=== PATIENT | female | born 1980 | race Caucasian/White ===

== ENCOUNTER 2021-03-28 13:06 | Inpatient (IN) ==
[2021-03-28] MEDS ORDERED: Ondansetron 4 MG/2 ML VIAL IVP ONE (13:30)
[2021-03-28] MEDS ORDERED: 0.9 % Sodium Chloride 1,000 ML IVC SCH (13:30)
[2021-03-28 13:56] LABS: Bilirubin,Urine Negative (Negative); Blood,Urine Trace (Negative); Clarity,Urine Clear (Clear); Color,Urine Light-Yellow (Yellow); Glucose,Urine (UA) >=1000 mg/dL (Normal); Ketones,Urine >150 mg/dL (Negative); Leukocyte Esterase,Urine Negative (Negative); Mucus,Urine Few per lpf (None-Few); Nitrite,Urine Negative (Negative); PH,Urine 5.5 pH Units (5.0-8.0); Protein,Urine 100 mg/dL (Neg-Trace); RBC,Urine 0-3 per hpf (0-3); Specific Gravity,Urine 1.027 (1.010-1.025); Squamous Epithelial Cell,Urine Few per hpf (None-Few); Urobilinogen,Urine Normal (Normal); WBC,Urine 0-3 per hpf (0-3)
[2021-03-28 13:57] LABS: White Blood Count 23.5 K/mcL (4.3-11.1)
[2021-03-28 13:58] LABS: Basophils # 0.1 K/mcL (0.0-0.2); Basophils % 0.6 %; Hematocrit 53.5 % (35.3-44.9); Hemoglobin 16.5 g/dL (11.5-15.4); Immature Granulocytes % 2.2 % (0-4); Lymphocytes # 2.4 K/mcL (0.6-4.6); Lymphocytes % 10.1 %; Mean Corpuscular HGB Conc 30.8 g/dL (31.6-35.5); Mean Corpuscular Hemoglobin 27.5 pg (28.0-33.3); Mean Corpuscular Volume 89.3 fL (83.0-100.0); Mean Platelet Volume 10.3 fL (9.4-12.4); Monocytes # 1.1 K/mcL (0.0-1.3); Monocytes % 4.5 %; Neutrophils # 19.5 K/mcL (1.6-8.9); Platelet Count 471 K/mcL (140-400); Red Blood Count 5.99 M/mcL (3.82-4.97); Red Cell Distribution Width 13.5 % (11.5-14.5); Segmented Neutrophils % 82.6 %
[2021-03-28 14:12] LABS: Amphetamine Screen,Urine Negative ng/mL (Cutoff=1000); Barbiturate Screen,Urine Negative ng/mL (Cutoff=200); Benzodiazepines Screen,Urine Negative ng/mL (Cutoff=200); Cannabinoid Screen,Urine Negative ng/mL (Cutoff = 50); Cocaine Screen,Urine Negative ng/mL (Cutoff= 300); Opiate Screen,Urine Negative ng/mL (Cutoff=300); Phencyclidine Screen,Urine Negative ng/mL (Cutoff=25)
[2021-03-28 14:20] LABS: BUN/Creatinine Ratio 17 (6-26); Blood Urea Nitrogen 16 mg/dL (6-20); Calcium 9.3 mg/dL (8.6-10.3); Carbon Dioxide 5 mEq/L (23-29); Chloride 102 mEq/L (98-107); Glucose 234 mg/dL (70-105); Osmolality,Calculated 289 (280-300); Potassium 4.2 mEq/L (3.5-5.1); Sodium 135 mEq/L (136-145); eGFR For African Americans > 60 (> 60); eGFR For Non-African Americans > 60 (> 60)
[2021-03-28 14:28] LABS: Alanine Aminotransferase 47 Units/L (7-52); Albumin 4.9 g/dL (3.5-5.7); Albumin/Globulin Ratio 1.3 (1.1-2.2); Alkaline Phosphatase 105 Units/L (34-104); Aspartate Amino Transferase 21 Units/L (13-39); Bilirubin,Direct 0.1 mg/dL (0.0-0.2); Bilirubin,Indirect 0.5 mg/dL (0.0-1.0); Bilirubin,Total 0.6 mg/dL (0.3-1.0); Globulin 3.7 g/dL (2.4-3.5); Total Protein 8.6 g/dL (6.4-8.9)
[2021-03-28] MEDS ORDERED: Isovue-370 500 ML BOTTLE IVP ONE (14:39)
[2021-03-28 15:11] LABS: VBG HCO3 5 mEq/L (21-27); VBG PCO2 21 mmHg (41-51); VBG PH 6.94 pH Units (7.32-7.42); VBG PO2 106 mmHg (25-50)
[2021-03-28] MEDS ORDERED: Sodium Bicarbonate 75 MEQ in 0.45 % Sodium Chloride 1,000 ML IVC SCH (15:15)
[2021-03-28] MEDS ORDERED: Naloxone 0.4 MG/ML INJ IVP PRN (16:28)
[2021-03-28] MEDS ORDERED: Insulin Regular, Human 100 UNIT/ML IV PRN (16:30)
[2021-03-28] MEDS ORDERED: Metoclopramide 10 MG/2 ML VIAL IVP ONE (16:38)
[2021-03-28 17:06] LABS: Magnesium 1.9 mg/dL (1.6-2.6)
[2021-03-28 17:52] LABS: Estimated Average Glucose 246 mg/dl; Hemoglobin A1C 10.2 %
[2021-03-28] MEDS: D5% in 0.45% NACL w KCl 20 MEQ/1,000 ML MLS IVC SCH ×2 (18:43→22:55)
[2021-03-28 19:54] LABS: BUN/Creatinine Ratio 19 (6-26); Blood Urea Nitrogen 17 mg/dL (6-20); Calcium 8.3 mg/dL (8.6-10.3); Carbon Dioxide 4 mEq/L (23-29); Chloride 103 mEq/L (98-107); Glucose 268 mg/dL (70-105); Osmolality,Calculated 293 (280-300); Potassium 4.7 mEq/L (3.5-5.1); Sodium 136 mEq/L (136-145); eGFR For African Americans > 60 (> 60); eGFR For Non-African Americans > 60 (> 60)
[2021-03-28] MEDS ORDERED: 0.9 % Sodium Chloride 1,000 ML IV ONE (20:06)
[2021-03-28] MEDS ORDERED: 0.9 % Sodium Chloride 2,000 ML IVC ONE (20:08)
[2021-03-28] MEDS: 0.9 % Sodium Chloride 1,000 ML IVC SCH ×2 (21:30→22:50)
[2021-03-28] MEDS: D5% in 0.45% NACL 1,000 ML IVC SCH (21:48)
[2021-03-28] MEDS: *HR* Heparin 5,000 UNIT/ML VIAL SQ SCH (21:58)
[2021-03-29 01:07] LABS: VBG HCO3 5 mEq/L (21-27); VBG Ionized Calcium 0.85 mmol/L (1.15-1.35); VBG PCO2 19 mmHg (41-51); VBG PO2 207 mmHg (25-50)
[2021-03-29 01:20] LABS: BUN/Creatinine Ratio 14 (6-26); Blood Urea Nitrogen 11 mg/dL (6-20); Calcium 6.9 mg/dL (8.6-10.3); Carbon Dioxide < 4 mEq/L (23-29); Chloride 113 mEq/L (98-107); Glucose 184 mg/dL (70-105); Magnesium 1.5 mg/dL (1.6-2.6); Osmolality,Calculated 286 (280-300); Potassium 3.7 mEq/L (3.5-5.1); Sodium 136 mEq/L (136-145); eGFR For African Americans > 60 (> 60); eGFR For Non-African Americans > 60 (> 60)
[2021-03-29] MEDS: Calcium Gluconate 1gm/50mL 1 GM/50 ML BAG IVPB SCH ×4 (01:30→23:33)
[2021-03-29] MEDS ORDERED: Sodium Bicarbonate 150 MEQ in D5% in Water 1,000 ML IVC SCH (02:00)
[2021-03-29 02:03] LABS: Thyroid Stimulating Hormone 0.132 mcIU/mL (0.340-5.600); Triiodothyronine (T3) Free 2.55 pg/mL (2.50-3.90)
[2021-03-29] MEDS: Ondansetron 4 MG/2 ML VIAL IVP PRN ×2 (02:09→08:55)
[2021-03-29 03:18] LABS: Basophils % 0.2 %
[2021-03-29 03:19] LABS: Basophils # 0.1 K/mcL (0.0-0.2); Hematocrit 38.5 % (35.3-44.9); Hemoglobin 12.3 g/dL (11.5-15.4); Immature Granulocytes % 2.1 % (0-4); Lymphocytes # 2.5 K/mcL (0.6-4.6); Lymphocytes % 9.5 %; Mean Corpuscular HGB Conc 31.9 g/dL (31.6-35.5); Mean Corpuscular Hemoglobin 27.8 pg (28.0-33.3); Mean Corpuscular Volume 86.9 fL (83.0-100.0); Mean Platelet Volume 9.8 fL (9.4-12.4); Monocytes # 2.2 K/mcL (0.0-1.3); Monocytes % 8.3 %; Neutrophils # 20.9 K/mcL (1.6-8.9); Platelet Count 317 K/mcL (140-400); Red Blood Count 4.43 M/mcL (3.82-4.97); Red Cell Distribution Width 13.7 % (11.5-14.5); Segmented Neutrophils % 79.9 %; White Blood Count 26.1 K/mcL (4.3-11.1)
[2021-03-29] MEDS: D5% in 0.45% NACL w KCl 20 MEQ/1,000 ML MLS IVC SCH ×4 (03:32→16:47)
[2021-03-29 03:33] LABS: VBG HCO3 10 mEq/L (21-27); VBG Ionized Calcium 1.15 mmol/L (1.15-1.35); VBG PCO2 26 mmHg (41-51); VBG PH 7.19 pH Units (7.32-7.42); VBG PO2 37 mmHg (25-50)
[2021-03-29 03:43] LABS: BUN/Creatinine Ratio 14 (6-26); Blood Urea Nitrogen 10 mg/dL (6-20); Calcium 7.8 mg/dL (8.6-10.3); Carbon Dioxide 9 mEq/L (23-29); Chloride 115 mEq/L (98-107); Glucose 162 mg/dL (70-105); Osmolality,Calculated 293 (280-300); Phosphorous < 1.0 mg/dL (2.7-4.5); Potassium 2.9 mEq/L (3.5-5.1); Sodium 140 mEq/L (136-145); Troponin I < 0.03 ng/mL (< 0.04); eGFR For African Americans > 60 (> 60); eGFR For Non-African Americans > 60 (> 60)
[2021-03-29 03:46] LABS: Adenovirus Not Detected (Not Detect); Bordetella Pertussis Not Detected (Not Detect); Chlamydophila pneumoniae Not Detected (Not Detect); Coronavirus 229E Not Detected (Not Detect); Coronavirus HKU1 Not Detected (Not Detect); Coronavirus NL63 Not Detected (Not Detect); Coronavirus OC43 Not Detected (Not Detect); Human Metapneumovirus Not Detected (Not Detect); Human Rhinovirus/Enterovirus Not Detected (Not Detect); Influenza A Subtype 2009 H1 Not Detected (Not Detect); Influenza B Not Detected (Not Detect); Mycoplasma pneumoniae Not Detected (Not Detect); Parainfluenza Virus 1 Not Detected (Not Detect); Parainfluenza Virus 2 Not Detected (Not Detect); Parainfluenza Virus 3 Not Detected (Not Detect); Parainfluenza Virus 4 Not Detected (Not Detect); Respiratory Syncytial Virus Not Detected (Not Detect); SARS-CoV-2 Not Detected (Not Detect)
[2021-03-29] MEDS ORDERED: Potassium Chloride Elixir 20 MEQ/15 ML UDC PO ONE (03:46)
[2021-03-29 04:04] LABS: Thyroid Stimulating Hormone 0.209 mcIU/mL (0.340-5.600); Triiodothyronine (T3) Free 2.68 pg/mL (2.50-3.90); Triiodothyronine (T3) Total 0.84 ng/mL (0.87-1.78)
[2021-03-29] MEDS ORDERED: Ringers Solution, Lactated 1,000 ML ONE (05:48)
[2021-03-29] MEDS ORDERED: Ringers Solution, Lactated 1,000 ML IVC ONE (05:48)
[2021-03-29] MEDS: *HR* Heparin 5,000 UNIT/ML VIAL SQ SCH ×3 (06:04→22:17)
[2021-03-29 07:13] LABS: VBG HCO3 14 mEq/L (21-27); VBG PCO2 30 mmHg (41-51); VBG PH 7.29 pH Units (7.32-7.42); VBG PO2 134 mmHg (25-50)
[2021-03-29] MEDS ORDERED: Potassium Phosphate 44 MEQ in 0.9 % Sodium Chloride 250 ML IVPB ONE (07:46)
[2021-03-29 07:47] LABS: BUN/Creatinine Ratio 12 (6-26); Blood Urea Nitrogen 7 mg/dL (6-20); Calcium 7.4 mg/dL (8.6-10.3); Carbon Dioxide 13 mEq/L (23-29); Chloride 115 mEq/L (98-107); Glucose 159 mg/dL (70-105); Osmolality,Calculated 283 (280-300); Potassium 3.2 mEq/L (3.5-5.1); Sodium 136 mEq/L (136-145); eGFR For African Americans > 60 (> 60); eGFR For Non-African Americans > 60 (> 60)
[2021-03-29] MEDS: ARIPiprazole 5 MG TABLET PO SCH (09:32)
[2021-03-29] MEDS: BuPROPion XL (24 HR) 150 MG TABLET PO SCH (09:32)
[2021-03-29 11:21] LABS: VBG Ionized Calcium 1.16 mmol/L (1.15-1.35)
[2021-03-29 11:39] LABS: BUN/Creatinine Ratio 11 (6-26); Blood Urea Nitrogen 6 mg/dL (6-20); Calcium 7.7 mg/dL (8.6-10.3); Carbon Dioxide 16 mEq/L (23-29); Chloride 116 mEq/L (98-107); Glucose 81 mg/dL (70-105); Osmolality,Calculated 279 (280-300); Potassium 3.2 mEq/L (3.5-5.1); Sodium 136 mEq/L (136-145); eGFR For African Americans > 60 (> 60); eGFR For Non-African Americans > 60 (> 60)
[2021-03-29] MEDS: *HR* Dextrose 50 % in Water (Vial) 50 ML VIAL IVP PRN ×2 (12:06→13:36)
[2021-03-29 15:38] LABS: BUN/Creatinine Ratio 10 (6-26); Blood Urea Nitrogen 5 mg/dL (6-20); Calcium 7.3 mg/dL (8.6-10.3); Carbon Dioxide 16 mEq/L (23-29); Chloride 116 mEq/L (98-107); Glucose 117 mg/dL (70-105); Osmolality,Calculated 280 (280-300); Potassium 3.7 mEq/L (3.5-5.1); Sodium 136 mEq/L (136-145); eGFR For African Americans > 60 (> 60); eGFR For Non-African Americans > 60 (> 60)
[2021-03-29] MEDS ORDERED: D5% in Water 1,000 ML IVC PRN ×2 (16:29→17:04)
[2021-03-29] MEDS ORDERED: Dextrose Gel 15 GM/37.5 ML TUBE PO PRN ×2 (17:04)
[2021-03-29] MEDS ORDERED: *HR* Dextrose 50 % in Water (Vial) 50 ML VIAL IVP PRN (17:04)
[2021-03-29] MEDS ORDERED: Insulin LISPRO 300 UNITS/3 ML VIAL SUBQ SCH ×2 (17:15→22:00)
[2021-03-29 21:48] LABS: BUN/Creatinine Ratio 10 (6-26); Blood Urea Nitrogen 6 mg/dL (6-20); Calcium 7.1 mg/dL (8.6-10.3); Carbon Dioxide 11 mEq/L (23-29); Chloride 110 mEq/L (98-107); Glucose 367 mg/dL (70-105); Osmolality,Calculated 291 (280-300); Potassium 3.8 mEq/L (3.5-5.1); Sodium 134 mEq/L (136-145); eGFR For African Americans > 60 (> 60); eGFR For Non-African Americans > 60 (> 60)
[2021-03-29] MEDS ORDERED: Insulin DETEMIR 100 UNIT/ML X5UNITS SUBQ SCH (22:00)
[2021-03-30] MEDS: D5% in 0.45% NACL w KCl 20 MEQ/1,000 ML MLS IVC SCH (04:52)
[2021-03-30 05:27] LABS: Basophils % 0.3 %; Eosinophils # 0.1 K/mcL (0.0-0.6); Eosinophils % 0.4 %; Hematocrit 35.2 % (35.3-44.9); Hemoglobin 11.6 g/dL (11.5-15.4); Immature Granulocytes % 0.4 % (0-4); Lymphocytes # 2.8 K/mcL (0.6-4.6); Lymphocytes % 21.2 %; Mean Corpuscular Hemoglobin 28.2 pg (28.0-33.3); Mean Corpuscular Volume 85.4 fL (83.0-100.0); Mean Platelet Volume 10.1 fL (9.4-12.4); Monocytes # 1.2 K/mcL (0.0-1.3); Monocytes % 8.8 %; Neutrophils # 9.1 K/mcL (1.6-8.9); Platelet Count 238 K/mcL (140-400); Red Blood Count 4.12 M/mcL (3.82-4.97); Red Cell Distribution Width 14.2 % (11.5-14.5); Segmented Neutrophils % 68.9 %; White Blood Count 13.3 K/mcL (4.3-11.1)
[2021-03-30 05:41] LABS: VBG Ionized Calcium 1.11 mmol/L (1.15-1.35)
[2021-03-30 05:47] LABS: BUN/Creatinine Ratio 10 (6-26); Blood Urea Nitrogen 5 mg/dL (6-20); Calcium 7.4 mg/dL (8.6-10.3); Carbon Dioxide 12 mEq/L (23-29); Chloride 112 mEq/L (98-107); Glucose 203 mg/dL (70-105); Magnesium 1.8 mg/dL (1.6-2.6); Osmolality,Calculated 285 (280-300); Phosphorous 1.4 mg/dL (2.7-4.5); Potassium 3.6 mEq/L (3.5-5.1); Sodium 136 mEq/L (136-145); eGFR For African Americans > 60 (> 60); eGFR For Non-African Americans > 60 (> 60)
[2021-03-30] MEDS: *HR* Heparin 5,000 UNIT/ML VIAL SQ SCH ×2 (06:20→14:48)
[2021-03-30] MEDS: Acetaminophen 325 MG TABLET PO PRN ×3 (06:48→23:40)
[2021-03-30] MEDS ORDERED: D5% in 0.45% NACL w KCl 20 MEQ/1,000 ML MLS IVC SCH (08:15)
[2021-03-30] MEDS: BuPROPion XL (24 HR) 150 MG TABLET PO SCH (08:46)
[2021-03-30] MEDS: ARIPiprazole 5 MG TABLET PO SCH (08:47)
[2021-03-30 10:00] LABS: BUN/Creatinine Ratio 8 (6-26); Blood Urea Nitrogen 4 mg/dL (6-20); Calcium 7.3 mg/dL (8.6-10.3); Carbon Dioxide 15 mEq/L (23-29); Chloride 112 mEq/L (98-107); Glucose 234 mg/dL (70-105); Osmolality,Calculated 284 (280-300); Potassium 3.4 mEq/L (3.5-5.1); Sodium 135 mEq/L (136-145); eGFR For African Americans > 60 (> 60); eGFR For Non-African Americans > 60 (> 60)
[2021-03-30] MEDS: Potassium Chloride 40 MEQ in D5% in 0.45% NACL 1,000 ML IVC SCH ×2 (10:55→17:46)
[2021-03-30 15:05] LABS: VBG Ionized Calcium 1.03 mmol/L (1.15-1.35)
[2021-03-30 15:15] LABS: BUN/Creatinine Ratio 10 (6-26); Blood Urea Nitrogen 4 mg/dL (6-20); Calcium 7.1 mg/dL (8.6-10.3); Carbon Dioxide 18 mEq/L (23-29); Chloride 112 mEq/L (98-107); Glucose 95 mg/dL (70-105); Osmolality,Calculated 283 (280-300); Potassium 3.7 mEq/L (3.5-5.1); Sodium 138 mEq/L (136-145); eGFR For African Americans > 60 (> 60); eGFR For Non-African Americans > 60 (> 60)
[2021-03-30 15:29] LABS: Phosphorous 1.7 mg/dL (2.7-4.5)
[2021-03-30] MEDS ORDERED: Calcium Gluconate 1gm/50mL 1 GM/50 ML BAG IVPB ONE (15:51)
[2021-03-30] MEDS ORDERED: Insulin DETEMIR 100 UNIT/ML X5UNITS SUBQ ONE (16:00)
[2021-03-30] MEDS ORDERED: Insulin LISPRO 300 UNITS/3 ML VIAL SUBQ SCH ×2 (16:30→21:00)
[2021-03-30 21:38] LABS: BUN/Creatinine Ratio 16 (6-26); Blood Urea Nitrogen 10 mg/dL (6-20); Calcium 7.5 mg/dL (8.6-10.3); Carbon Dioxide 15 mEq/L (23-29); Chloride 105 mEq/L (98-107); Glucose 405 mg/dL (70-105); Osmolality,Calculated 288 (280-300); Potassium 4.2 mEq/L (3.5-5.1); Sodium 131 mEq/L (136-145); eGFR For African Americans > 60 (> 60); eGFR For Non-African Americans > 60 (> 60)
[2021-03-31] MEDS: Potassium Chloride 40 MEQ in D5% in 0.45% NACL 1,000 ML IVC SCH ×2 (00:11→00:12)
[2021-03-31] MEDS: *HR* Heparin 5,000 UNIT/ML VIAL SQ SCH ×2 (00:11→05:04)
[2021-03-31 05:32] LABS: VBG Ionized Calcium 1.17 mmol/L (1.15-1.35)
[2021-03-31 05:33] LABS: Basophils % 0.6 %; Eosinophils # 0.1 K/mcL (0.0-0.6); Eosinophils % 1.6 %; Hematocrit 34.8 % (35.3-44.9); Hemoglobin 12.1 g/dL (11.5-15.4); Immature Granulocytes % 0.1 % (0-4); Lymphocytes # 2.6 K/mcL (0.6-4.6); Lymphocytes % 37.1 %; Mean Corpuscular HGB Conc 34.8 g/dL (31.6-35.5); Mean Corpuscular Hemoglobin 28.9 pg (28.0-33.3); Mean Corpuscular Volume 83.3 fL (83.0-100.0); Mean Platelet Volume 10.3 fL (9.4-12.4); Monocytes # 0.7 K/mcL (0.0-1.3); Monocytes % 9.8 %; Neutrophils # 3.6 K/mcL (1.6-8.9); Platelet Count 219 K/mcL (140-400); Red Blood Count 4.18 M/mcL (3.82-4.97); Red Cell Distribution Width 14.3 % (11.5-14.5); Segmented Neutrophils % 50.8 %; White Blood Count 7.1 K/mcL (4.3-11.1)
[2021-03-31 05:52] LABS: BUN/Creatinine Ratio 15 (6-26); Blood Urea Nitrogen 6 mg/dL (6-20); Calcium 8.1 mg/dL (8.6-10.3); Carbon Dioxide 19 mEq/L (23-29); Chloride 108 mEq/L (98-107); Glucose 179 mg/dL (70-105); Magnesium 1.9 mg/dL (1.6-2.6); Osmolality,Calculated 284 (280-300); Phosphorous 2.1 mg/dL (2.7-4.5); Sodium 136 mEq/L (136-145); eGFR For African Americans > 60 (> 60); eGFR For Non-African Americans > 60 (> 60)
[2021-03-31] MEDS ORDERED: D5% in Water 1,000 ML IVC PRN (07:53)
[2021-03-31] MEDS ORDERED: *HR* Dextrose 50 % in Water (Vial) 50 ML VIAL IVP PRN (07:53)
[2021-03-31] MEDS ORDERED: Acetaminophen 325 MG TABLET PO PRN (07:53)
[2021-03-31] MEDS ORDERED: Ondansetron 4 MG/2 ML VIAL IVP PRN (07:53)
[2021-03-31] MEDS ORDERED: Naloxone 0.4 MG/ML INJ IVP PRN (07:53)
[2021-03-31] MEDS ORDERED: Dextrose Gel 15 GM/37.5 ML TUBE PO PRN ×2 (07:53)
[2021-03-31] MEDS: Insulin LISPRO 300 UNITS/3 ML VIAL SUBQ SCH ×2 (08:40→12:13)
[2021-03-31] MEDS ORDERED: ARIPiprazole 5 MG TABLET PO SCH (09:00)
[2021-03-31] MEDS ORDERED: BuPROPion XL (24 HR) 150 MG TABLET PO SCH (09:00)
[2021-03-31] MEDS ORDERED: Insulin DETEMIR 100 UNIT/ML X5UNITS SUBQ SCH ×2 (09:00)
[2021-03-31] MEDS ORDERED: *HR* Metformin 500 MG TABLET PO ONE (10:14)
[2021-03-31 11:06] VITALS: BP 117/95
[2021-03-31] MEDS ORDERED: *HR* Heparin 5,000 UNIT/ML VIAL SQ SCH (14:00)
[2021-03-31] MEDS ORDERED: Insulin LISPRO 300 UNITS/3 ML VIAL SUBQ SCH (21:00)
== END 2021-03-31 13:15 | disposition home or self-care (01) | DRG 639 ==
LOC: EMEROOARM 13:06 → ICNU 16:35 → 3ANU 22:10 → ICNU 22:14
PROVIDERS: ADMIT Internal Medicine; ATTEND Internal Medicine

== ENCOUNTER 2021-09-11 06:41 | Observation (INO) ==
[2021-09-11] MEDS ORDERED: Ondansetron 4 MG/2 ML VIAL IVP ONE ×2 (07:14→12:37)
[2021-09-11] MEDS ORDERED: 0.9 % Sodium Chloride 1,000 ML IV ONE ×2 (07:14→08:49)
[2021-09-11 09:19] LABS: Influenza A PCR Negative (Negative); Influenza B PCR Negative (Negative); Resp. Syncytial Virus PCR Negative (Negative)
[2021-09-11 09:20] LABS: SARS-CoV-2 by PCR (In House) Negative (Negative)
[2021-09-11 09:53] LABS: VBG HCO3 8 mEq/L (21-27); VBG PCO2 26 mmHg (41-51); VBG PO2 73 mmHg (25-50)
[2021-09-11 11:15] LABS: Basophils # 0.1 K/mcL (0.0-0.2); Basophils % 0.4 %; Hematocrit 44.3 % (35.3-44.9); Immature Granulocytes % 0.9 % (0-4); Lymphocytes # 1.7 K/mcL (0.6-4.6); Lymphocytes % 8.5 %; Mean Corpuscular HGB Conc 31.6 g/dL (31.6-35.5); Mean Corpuscular Hemoglobin 27.7 pg (28.0-33.3); Mean Corpuscular Volume 87.5 fL (83.0-100.0); Monocytes # 1.1 K/mcL (0.0-1.3); Monocytes % 5.8 %; Neutrophils # 16.5 K/mcL (1.6-8.9); Platelet Count 321 K/mcL (140-400); Red Blood Count 5.06 M/mcL (3.82-4.97); Red Cell Distribution Width 13.9 % (11.5-14.5); Segmented Neutrophils % 84.4 %; White Blood Count 19.5 K/mcL (4.3-11.1)
[2021-09-11 12:13] LABS: Alanine Aminotransferase 47 Units/L (7-52); Albumin 4.2 g/dL (3.5-5.7); Albumin/Globulin Ratio 1.5 (1.1-2.2); Alkaline Phosphatase 77 Units/L (34-104); Aspartate Amino Transferase 23 Units/L (13-39); BUN/Creatinine Ratio 21 (6-26); Bilirubin,Total 0.8 mg/dL (0.3-1.0); Blood Urea Nitrogen 14 mg/dL (6-20); Calcium 8.3 mg/dL (8.6-10.3); Carbon Dioxide 6 mEq/L (23-29); Chloride 109 mEq/L (98-107); Globulin 2.8 g/dL (2.4-3.5); Glucose 123 mg/dL (70-105); Magnesium 1.7 mg/dL (1.6-2.6); Osmolality,Calculated 286 (280-300); Potassium 4.7 mEq/L (3.5-5.1); Sodium 137 mEq/L (136-145); eGFR For African Americans > 60 (> 60); eGFR For Non-African Americans > 60 (> 60)
[2021-09-11 12:22] LABS: Bacteria,Urine Few per hpf (None-Few); Bilirubin,Urine Negative (Negative); Blood,Urine Negative (Negative); Clarity,Urine Clear (Clear); Color,Urine Colorless (Yellow); Glucose,Urine (UA) >=1000 mg/dL (Normal); Ketones,Urine >150 mg/dL (Negative); Leukocyte Esterase,Urine Negative (Negative); Mucus,Urine Few per lpf (None-Few); Nitrite,Urine Negative (Negative); PH,Urine 5.5 pH Units (5.0-8.0); Protein,Urine 50 mg/dL (Neg-Trace); RBC,Urine 0-3 per hpf (0-3); Specific Gravity,Urine 1.028 (1.010-1.025); Squamous Epithelial Cell,Urine Few per hpf (None-Few); Urobilinogen,Urine Normal (Normal); WBC,Urine 0-3 per hpf (0-3)
[2021-09-11 13:15] LABS: ABG Base Excess -23 mEq/L (-2 to 3); ABG Chloride 118 mEq/L (98-107); ABG Glucose 175 mg/dL (60-95); ABG HCO3 5 mEq/L (21-27); ABG Ionized Calcium 1.21 mmol/L (1.15-1.35); ABG Oxygen Saturation 92 % (95-98); ABG PCO2 17 mmHg (35-45); ABG PH 7.08 pH Units (7.32-7.45); ABG PO2 84 mmHg (85-104); ABG TCO2 6 mEq/L (20-26)
[2021-09-11] MEDS ORDERED: *HR* Dextrose 50 % in Water (Syg) 50 ML SYRINGE IVP PRN ×2 (13:37→18:34)
[2021-09-11] MEDS: D5% in 0.45% NACL w KCl 20 MEQ/1,000 ML MLS IVC PRN ×3 (13:53→22:22)
[2021-09-11] MEDS ORDERED: Prochlorperazine 10 MG/2 ML VIAL IVP ONE (14:30)
[2021-09-11 15:08] LABS: BUN/Creatinine Ratio 17 (6-26); Blood Urea Nitrogen 12 mg/dL (6-20); Calcium 8.6 mg/dL (8.6-10.3); Carbon Dioxide 4 mEq/L (23-29); Chloride 108 mEq/L (98-107); Glucose 192 mg/dL (70-105); Osmolality,Calculated 287 (280-300); Potassium 4.9 mEq/L (3.5-5.1); Sodium 136 mEq/L (136-145); eGFR For African Americans > 60 (> 60); eGFR For Non-African Americans > 60 (> 60)
[2021-09-11] MEDS ORDERED: Insulin Regular, Human 100 UNIT/ML IV PRN (16:20)
[2021-09-11] MEDS ORDERED: Ondansetron 4 MG/2 ML VIAL IVP PRN (16:32)
[2021-09-11] MEDS ORDERED: Naloxone 0.4 MG/ML INJ IVP PRN (16:32)
[2021-09-11 18:41] LABS: BUN/Creatinine Ratio 13 (6-26); Blood Urea Nitrogen 10 mg/dL (6-20); Calcium 8.2 mg/dL (8.6-10.3); Carbon Dioxide 4 mEq/L (23-29); Chloride 111 mEq/L (98-107); Glucose 175 mg/dL (70-105); Osmolality,Calculated 281 (280-300); Potassium 4.4 mEq/L (3.5-5.1); Sodium 134 mEq/L (136-145); eGFR For African Americans > 60 (> 60); eGFR For Non-African Americans > 60 (> 60)
[2021-09-11] MEDS ORDERED: Acetaminophen 325 MG TABLET PO PRN (20:30)
[2021-09-11 21:59] LABS: BUN/Creatinine Ratio 12 (6-26); Blood Urea Nitrogen 9 mg/dL (6-20); Calcium 8.1 mg/dL (8.6-10.3); Carbon Dioxide 10 mEq/L (23-29); Chloride 113 mEq/L (98-107); Glucose 151 mg/dL (70-105); Osmolality,Calculated 282 (280-300); Potassium 3.9 mEq/L (3.5-5.1); Sodium 135 mEq/L (136-145); eGFR For African Americans > 60 (> 60); eGFR For Non-African Americans > 60 (> 60)
[2021-09-11] MEDS: *HR* Heparin 5,000 UNIT/ML VIAL SQ SCH (22:27)
[2021-09-12 01:26] LABS: BUN/Creatinine Ratio 11 (6-26); Blood Urea Nitrogen 7 mg/dL (6-20); Calcium 8.3 mg/dL (8.6-10.3); Carbon Dioxide 12 mEq/L (23-29); Chloride 113 mEq/L (98-107); Glucose 139 mg/dL (70-105); Osmolality,Calculated 276 (280-300); Potassium 3.5 mEq/L (3.5-5.1); Sodium 133 mEq/L (136-145); eGFR For African Americans > 60 (> 60); eGFR For Non-African Americans > 60 (> 60)
[2021-09-12] MEDS: 0.45 % Sodium Chloride w/KCl 20 MEQ/1,000 ML MLS IVC SCH ×4 (02:34→02:37)
[2021-09-12 03:16] LABS: Basophils % 0.2 %; Eosinophils % 0.2 %; Hematocrit 36.3 % (35.3-44.9); Immature Granulocytes % 0.6 % (0-4); Lymphocytes # 1.4 K/mcL (0.6-4.6); Lymphocytes % 10.3 %; Mean Corpuscular HGB Conc 33.3 g/dL (31.6-35.5); Mean Corpuscular Hemoglobin 28.2 pg (28.0-33.3); Mean Corpuscular Volume 84.6 fL (83.0-100.0); Mean Platelet Volume 9.8 fL (9.4-12.4); Monocytes # 1.7 K/mcL (0.0-1.3); Monocytes % 12.6 %; Neutrophils # 10.4 K/mcL (1.6-8.9); Platelet Count 279 K/mcL (140-400); Red Blood Count 4.29 M/mcL (3.82-4.97); Segmented Neutrophils % 76.1 %; White Blood Count 13.7 K/mcL (4.3-11.1)
[2021-09-12 03:17] LABS: Hemoglobin 12.1 g/dL (11.5-15.4)
[2021-09-12 03:21] LABS: BUN/Creatinine Ratio 12 (6-26); Blood Urea Nitrogen 7 mg/dL (6-20); Calcium 8.1 mg/dL (8.6-10.3); Carbon Dioxide 12 mEq/L (23-29); Chloride 113 mEq/L (98-107); Glucose 223 mg/dL (70-105); Osmolality,Calculated 279 (280-300); Potassium 3.7 mEq/L (3.5-5.1); Sodium 132 mEq/L (136-145); eGFR For African Americans > 60 (> 60); eGFR For Non-African Americans > 60 (> 60)
[2021-09-12] MEDS: D5% in 0.45% NACL w KCl 20 MEQ/1,000 ML MLS IVC PRN (03:40)
[2021-09-12] MEDS ORDERED: 0.45 % Sodium Chloride w/KCl 20 MEQ/1,000 ML MLS IVC SCH (04:07)
[2021-09-12] MEDS: *HR* Heparin 5,000 UNIT/ML VIAL SQ SCH (06:04)
[2021-09-12 06:55] LABS: BUN/Creatinine Ratio 11 (6-26); Blood Urea Nitrogen 6 mg/dL (6-20); Calcium 7.9 mg/dL (8.6-10.3); Carbon Dioxide 16 mEq/L (23-29); Chloride 114 mEq/L (98-107); Glucose 138 mg/dL (70-105); Osmolality,Calculated 278 (280-300); Potassium 3.6 mEq/L (3.5-5.1); Sodium 134 mEq/L (136-145); eGFR For African Americans > 60 (> 60); eGFR For Non-African Americans > 60 (> 60)
[2021-09-12 08:42] LABS: BUN/Creatinine Ratio 12 (6-26); Blood Urea Nitrogen 6 mg/dL (6-20); Calcium 7.9 mg/dL (8.6-10.3); Carbon Dioxide 16 mEq/L (23-29); Chloride 114 mEq/L (98-107); Glucose 154 mg/dL (70-105); Osmolality,Calculated 281 (280-300); Potassium 3.5 mEq/L (3.5-5.1); Sodium 135 mEq/L (136-145); eGFR For African Americans > 60 (> 60); eGFR For Non-African Americans > 60 (> 60)
[2021-09-12] MEDS ORDERED: BuPROPion XL (24 HR) 150 MG TABLET PO SCH (09:00)
[2021-09-12] MEDS ORDERED: Insulin DETEMIR 100 UNIT/ML X5UNITS SUBQ ONE (10:43)
[2021-09-12 11:11] VITALS: BP 112/71; PULSE 88; TEMP 97.7; O2SAT 98
[2021-09-12] MEDS ORDERED: Insulin LISPRO 300 UNITS/3 ML VIAL SUBQ SCH (11:30)
[2021-09-12] MEDS ORDERED: FLU Vac QV 21-22 (6Month+)/PF 0.5 ML SYRINGE IM ONE (15:40)
[2021-09-12] MEDS ORDERED: Insulin DETEMIR 100 UNIT/ML X5UNITS SUBQ SCH (21:00)
== END 2021-09-12 16:34 | disposition home or self-care (01) ==
LOC: 3NENU 06:41 → EMEROOARM 06:41 → SUATTDRO 16:49 → 3NENU 18:41
PROVIDERS: ADMIT Family Medicine; ATTEND Internal Medicine